=== PATIENT | female | born 1960 | race Caucasian/White ===

== ENCOUNTER 2016-09-06 20:41 | Emergency (ER) | payer BC | END 2016-09-06 22:30 | disposition home or self-care (01) | LOC: ER1 20:41 | DX: S61.253A Open bite of left middle finger without damage to nail, initial encounter (principal); W54.0XXA Bitten by dog, initial encounter; Y92.009 Unspecified place in unspecified non-institutional (private) residence as the place of occurrence of the external cause | CPT/HCPCS: 12001; 99283 ==

== ENCOUNTER 2020-09-25 20:56 | Emergency (ER) | payer BC ==
[2020-09-25] MEDS ORDERED: IBUPROFEN600 MG PO (22:12)
== END 2020-09-25 22:21 | disposition home or self-care (01) ==
LOC: ER1 20:56
DX: S52.571A Other intraarticular fracture of lower end of right radius, initial encounter for closed fracture (principal); S52.611A Displaced fracture of right ulna styloid process, initial encounter for closed fracture; Z79.899 Other long term (current) drug therapy; W01.0XXA Fall on same level from slipping, tripping and stumbling without subsequent striking against object, initial encounter
CPT/HCPCS: 29125; 73110; 99283